=== PATIENT | female | born 1995 | race Hispanic/Latino ===

== ENCOUNTER 2019-01-26 18:00 | Inpatient (IN) | payer OTHER ==
[~2019-01-26 18:00] MED LIST: Bupivacaine PF 0.5% 30 ML VIAL ONE
[2019-01-26] MEDS ORDERED: HYDROcodone/Acetaminophen 5/325 mg Tablet PO PRN (22:08)
[2019-01-26] MEDS ORDERED: Ibuprofen 800 MG TAB PO PRN (22:08)
[2019-01-26] MEDS ORDERED: NS / Oxytocin 40 units/1000ml 1,000 ML IV PRN (22:08)
[2019-01-26] MEDS ORDERED: Lidocaine 1% (PF) 30 ML VIAL SC PRN (22:08)
[2019-01-26] MEDS ORDERED: Misoprostol 200 MCG TAB PR PRN (22:08)
[2019-01-26] MEDS ORDERED: Carboprost 250 MCG/ML AMP IM PRN (22:08)
[2019-01-26] MEDS ORDERED: Methylergonovine 0.2 MG/ML VIAL IM PRN (22:08)
[2019-01-26] MEDS ORDERED: Promethazine HCl 25 MG/ML VIAL IM PRN (22:08)
[2019-01-26] MEDS ORDERED: hydrALAZINE 20 MG/ML VIAL SLOW IVP PRN (22:08)
[2019-01-26] MEDS ORDERED: Diphenoxylate HCl/Atropine Tablet PO PRN (22:08)
[2019-01-26] MEDS ORDERED: Ondansetron PF 4 MG/2 ML Vial IVP PRN (22:08)
[2019-01-26 22:12] VITALS: BMI 21.9
[2019-01-26] MEDS: Lactated Ringer's 1,000 ML IV SCH (22:25)
[2019-01-26] MEDS ORDERED: NS w/ Oxytocin 10 units 500 ML IV SCH ×2 (22:30)
[2019-01-26 22:42] LABS: Hemoglobin 12.6 g/dL (12.0-16.0); Mean Corpuscular HGB CONC 33.8 g/dL (32.0-36.0); Mean Corpuscular Hemoglobin 32.3 pg (27.0-31.0); Mean Corpuscular Volume 95.8 fL (78.0-98.0); Mean Platelet Volume 8.8 fL (7.4-10.4); Platelet Count 159 thou/uL (130-400); RBC Distribution Width 11.9 % (11.5-14.5); Red Blood Cell (RBC) Count 3.89 mill/uL (4.20-5.40); White Blood Cell (WBC) Count 10.8 thou/uL (4.8-10.8)
[2019-01-26] MEDS: Misoprostol 100 MCG TAB PO SCH (22:50)
[2019-01-26 23:28] LABS: Syphilis Antibody Nonreactive (Nonreactive); Syphilis Antibody Index 0.04 S/CO (<1.00 Non-Reactive)
[2019-01-26 23:31] LABS: HBSAg Index 0.22 S/CO (0-0.99); Hep B Surf Ag Non-Reactive S/CO (NonReactive)
[2019-01-27] MEDS: Misoprostol 100 MCG TAB PO SCH ×3 (03:30→14:49)
[2019-01-27] MEDS: Butorphanol Tartrate 1 MG/ML VIAL SLOW IVP PRN ×2 (11:19→14:15)
[2019-01-27] MEDS: Lactated Ringer's 1,000 ML IV SCH ×2 (11:48→14:29)
[2019-01-27] MEDS ORDERED: Fentanyl 4 mcg/Bup 0.1% Cadd 100 ML ONE (12:59)
[2019-01-27] MEDS ORDERED: Butorphanol Tartrate 1 MG/ML VIAL ONE (14:13)
[2019-01-27] MEDS ORDERED: Bupivacaine 0.5% 10 ML VIAL ONE (14:21)
[2019-01-27] MEDS ORDERED: Fentanyl 100 MCG/2 ML VIAL ONE (14:21)
[2019-01-27] MEDS ORDERED: Ondansetron PF 4 MG/2 ML Vial IVP PRN ×2 (14:46→20:13)
[2019-01-27] MEDS ORDERED: Lactated Ringer's 500 ML IV PRN (14:46)
[2019-01-27] MEDS ORDERED: Naloxone HCl 0.4 mg/ml Vial IVP PRN ×2 (14:46)
[2019-01-27] MEDS ORDERED: ePHEDrine/0.9% NaCl/PF SYRINGE 50 mg/10 ml SLOW IVP PRN (14:46)
[2019-01-27] MEDS ORDERED: Acetaminophen 325 MG TAB PO PRN (14:46)
[2019-01-27] MEDS ORDERED: diphenhydrAMINE 50 MG/ML VIAL IVP PRN (14:46)
[2019-01-27] MEDS ORDERED: Promethazine HCl 25 MG/ML VIAL IM PRN ×2 (14:46→20:13)
[2019-01-27] MEDS ORDERED: Fentanyl 4 mcg/Bupivacaine 0.1% Cassette 100 ML EPIDURAL SCH (15:00)
[2019-01-27] MEDS ORDERED: Communication Order-Pharmacy FS SCH (15:00)
[2019-01-27] MEDS ORDERED: HYDROcodone/Acetaminophen 5/325 mg Tablet PO PRN ×2 (20:13)
[2019-01-27] MEDS ORDERED: Bisacodyl 10 MG SUPP PR PRN (20:13)
[2019-01-27] MEDS ORDERED: diphenhydrAMINE 25 MG CAP PO PRN (20:13)
[2019-01-27] MEDS ORDERED: Preparation H Ointment 28 GM TUBE PR PRN (20:13)
[2019-01-27] MEDS ORDERED: Milk Of Magnesia 30 ML UDCUP PO PRN (20:13)
[2019-01-27] MEDS ORDERED: hydrALAZINE 20 MG/ML VIAL SLOW IVP PRN (20:13)
[2019-01-27] MEDS ORDERED: Benzocaine-Menthol 82.5 ML CAN TOP PRN (20:13)
[2019-01-27] MEDS ORDERED: NS / Oxytocin 40 units/1000ml 1,000 ML IV SCH (20:30)
[2019-01-27] MEDS: Docusate Calcium (SURFAK) 240 MG CAP PO SCH (22:05)
[2019-01-27] MEDS: Ibuprofen 800 MG TAB PO SCH (22:05)
[2019-01-28] MEDS: Ibuprofen 800 MG TAB PO SCH ×3 (05:24→21:29)
[2019-01-28 05:42] LABS: Hemoglobin 11.1 g/dL (12.0-16.0); Mean Corpuscular Hemoglobin 31.9 pg (27.0-31.0); Mean Corpuscular Volume 96.7 fL (78.0-98.0); Mean Platelet Volume 8.7 fL (7.4-10.4); Platelet Count 122 thou/uL (130-400); RBC Distribution Width 11.9 % (11.5-14.5); Red Blood Cell (RBC) Count 3.49 mill/uL (4.20-5.40)
[2019-01-28] MEDS: Docusate Calcium (SURFAK) 240 MG CAP PO SCH ×2 (08:16→21:29)
[2019-01-28] MEDS: Ferrous Sulfate 325 MG TAB PO SCH ×2 (08:17→17:19)
[2019-01-28] MEDS ORDERED: Adacel (T-DAP) 0.5 ML SYRINGE IM ONE (09:00)
[2019-01-29] MEDS: Ibuprofen 800 MG TAB PO SCH (06:09)
[2019-01-29 08:13] VITALS: BP 104/60; TEMP 97.8
[2019-01-29] MEDS: Ferrous Sulfate 325 MG TAB PO SCH (09:07)
[2019-01-29] MEDS: Docusate Calcium (SURFAK) 240 MG CAP PO SCH (09:07)
== END 2019-01-29 12:00 | disposition home or self-care (01) | DRG 806 ==
LOC: L&D 21:47 → 3SW 01-27 21:16
PROVIDERS: ADMIT Family Medicine; ATTEND Family Medicine
PROC: 10E0XZZ Delivery of Products of Conception, External Approach (ICD-10-PCS; principal; 2019-01-27)
PROC: 0UQMXZZ Repair Vulva, External Approach (ICD-10-PCS; 2019-01-27)
PROC: 10907ZC Drainage of Amniotic Fluid, Therapeutic from Products of Conception, Via Natural or Artificial Opening (ICD-10-PCS; 2019-01-27)
PROC: 0UQGXZZ Repair Vagina, External Approach (ICD-10-PCS; 2019-01-27)
PROC: 3E033VJ Introduction of Other Hormone into Peripheral Vein, Percutaneous Approach (ICD-10-PCS; 2019-01-27)
DX: O36.5930 Maternal care for other known or suspected poor fetal growth, third trimester, not applicable or unspecified (principal); O71.4 Obstetric high vaginal laceration alone; Z37.0 Single live birth; Z3A.39 39 weeks gestation of pregnancy; O12.04 Gestational edema, complicating childbirth
CPT/HCPCS: 36415; 51702; 85027; 86780; 86850; 86900; 86901; 87340; 88307; J0595; J2001; J2210; J2590; J3010; J3490; S0020